=== PATIENT | female | born 1965 | race Two or more races ===

== ENCOUNTER 2017-08-14 18:49 | Emergency (ER) | payer OTHER ==
--- NOTE | 2017-08-14 18:54 | PDOC ---
Rapid Medical Evaluation Time Seen by Provider: 08/14/17 18:53 Medical Evaluation: Allergies Allergy/AdvReac Type Severity Reaction Status Date / Time No Known Drug Allergies Allergy Verified 10/31/12 20:43 DUST Allergy Mild Uncoded 10/31/12 20:43 08/14/17 18:53 The patient presents with a chief complaint of: abd pain I have performed a brief in-person evaluation of this patient. Pertinent physical exam findings: vss I have ordered the following: labs The patient will proceed to the ED for further evaluation.
[2017-08-14 18:55] VITALS: BP 123/54; PULSE 73; TEMP 98; BMI 26.5
[2017-08-14 19:29] LABS: BASO % 0.3 % (0-2.0); EOS % 1.7 % (0-4.5); HEMOGLOBIN 14.1 GM/dL (10.7-15.3); LYMPH % 25.7 % (8-40); MCH 30.4 pg (25.7-33.7); MCHC 34.5 g/dl (32.0-36.0); MEAN CELL VOLUME 88.2 fl (80-96); MEAN PLT VOLUME 8.1 fl (7.5-11.1); MONO % 7.1 % (3.8-10.2); NEUT % 65.2 % (42.8-82.8); PLATELET COUNT 279 K/MM3 (134-434); RBC 4.64 M/mm3 (3.60-5.2); RDW 13.1 % (11.6-15.6); WHITE BLOOD COUNT 7.9 K/mm3 (4.0-10.0)
[2017-08-14 19:31] LABS: URINE APPEARANCE CLEAR; URINE BILIRUBIN NEGATIVE (<2.0 mg/dL); URINE BLOOD NEGATIVE (NEGATIVE); URINE COLOR YELLOW; URINE GLUCOSE (UA) NEGATIVE (NEGATIVE); URINE KETONE NEGATIVE (NEGATIVE); URINE LEUK ESTERASE TRACE (NEGATIVE); URINE NITRITE NEGATIVE (NEGATIVE); URINE UROBILINOGEN NEGATIVE mg/dL (0.2-1.0)
[2017-08-14 19:34] LABS: URINE PROTEIN 1+ (NEGATIVE)
[2017-08-14 19:47] LABS: EPI CELLS RARE /HPF (FEW); URINE BACTERIA RARE /hpf (NONE SEEN); URINE HYALINE CAST 1 /lpf; URINE MUCUS FEW
[2017-08-14 20:01] LABS: ALBUMIN 3.9 g/dl (3.4-5.0); ANION GAP 5 (8-16); BLOOD UREA NITROGEN 12 mg/dL (7-18); CALCIUM 9.4 mg/dL (8.5-10.1); CHLORIDE 105 mmol/L (98-107); CO2 29 mmol/L (21-32); CREATININE 0.5 mg/dL (0.55-1.02); GLUCOSE,RANDOM 107 mg/dL (74-106); LIPASE 96 U/L (73-393); SGOT/AST 12 U/L (15-37); SGPT/ALT 17 U/L (12-78); SODIUM 139 mmol/L (136-145)
[2017-08-14 20:03] LABS: ALK PHOS 116 U/L (45-117); BILIRUBIN,TOTAL 0.4 mg/dL (0.2-1.0); TOT PROT 7.8 g/dl (6.4-8.2)
--- NOTE | 2017-08-14 22:07 | PDOC ---
History of Present Illness - General History Source: Patient Exam Limitations: No Limitations - History of Present Illness Initial Comments: 08/14/17 22:20 The patient is a 51 year old female with who is s/p appendectomy, SBO, who presents to the ED complaining of 1 day of diffuse mid abdominal pain. She states she woke her pain this morning. She states she has experienced similar pain in the past. She also reports nausea, no vomiting or diarrhea. No fever or chills. No chest pain or shortness of breath. Last BM twelve hours ago. <Berta Ambrose - Last Filed: 08/14/17 22:20> <Bekah Montemayor - Last Filed: 08/15/17 17:26> - General Chief Complaint: Pain, Acute Stated Complaint: ABDOMINAL PAIN Time Seen by Provider: 08/14/17 18:53 Past History <Berta Ambrose - Last Filed: 08/14/17 22:20> - Past Medical History Anemia: Yes Asthma: No Cancer: No Cardiac Disorders: No CVA: No COPD: No CHF: No Dementia: No Diabetes: No GI Disorders: Yes (ABD PAIN S/P COLONOSCOPY, REFLUX) Disorders: No HTN: No Hypercholesterolemia: No Liver Disease: No Seizures: No Thyroid Disease: No - Surgical History Abdominal Surgery: No Appendectomy: Yes Cardiac Surgery: No Cholecystectomy: No Lung Surgery: No Neurologic Surgery: No Orthopedic Surgery: No - Suicide/Smoking/Psychosocial Hx Smoking Status: No Smoking History: Never smoked Have you smoked in the past 12 months: No Number of Cigarettes Smoked Daily: 0 Hx Alcohol Use: No Drug/Substance Use Hx: No Substance Use Type: None Hx Substance Use Treatment: No <Bekah Montemayor - Last Filed: 08/15/17 17:26> - Past Medical History Allergies/Adverse Reactions: Allergies Allergy/AdvReac Type Severity Reaction Status Date / Time No Known Drug Allergies Allergy Verified 08/14/17 18:53 DUST Allergy Mild Uncoded 08/14/17 18:53 Home Medications: Ambulatory Orders Multivitamin [Multivitamins] 1 each PO DAILY #0 capsule 11/05/12 Review of Systems - Review of Systems Able to Perform ROS?: Yes Comments:: 08/14/17 22:27 GENERAL/CONSTITUTIONAL: No fever or chills. No weakness. HEAD, EYES, EARS, NOSE AND THROAT: No change in vision. No ear pain or discharge. No sore throat. CARDIOVASCULAR: No chest pain or shortness of breath. RESPIRATORY: No cough, wheezing, or hemoptysis. GASTROINTESTINAL: +Abdominal pain, nausea. No vomiting, diarrhea or constipation. GENITOURINARY: No dysuria, frequency, or change in urination. MUSCULOSKELETAL: No joint or muscle swelling or pain. No neck or back pain. SKIN: No rash NEUROLOGIC: No headache, vertigo, loss of consciousness, or change in strength/ sensation. ENDOCRINE: No increased thirst. No abnormal weight change. HEMATOLOGIC/LYMPHATIC: No anemia, easy bleeding, or history of blood clots. ALLERGIC/IMMUNOLOGIC: No hives or skin allergy. <Berta Ambrose - Last Filed: 08/14/17 22:20> *Physical Exam - Vital Signs Last Vital Signs Temp Pulse Resp BP Pulse Ox 98.0 F 73 18 123/54 100 08/14/17 18:53 08/14/17 18:53 08/14/17 18:53 08/14/17 18:53 08/14/17 18:53 - Physical Exam Comments: 08/14/17 22:28 GENERAL: Awake, alert, and fully oriented, in no acute distress HEAD: No signs of trauma EYES: PERRLA, EOMI, sclera anicteric, conjunctiva clear ENT: Auricles normal inspection, hearing grossly normal, nares patent, oropharynx clear without exudates. Moist mucosa NECK: Normal ROM, supple, no lymphadenopathy, JVD, or masses LUNGS: Breath sounds equal, clear to auscultation bilaterally. No wheezes, and no crackles HEART: Regular rate and rhythm, normal S1 and S2, no murmurs, rubs or gallops ABDOMEN: +Mild midabdominal tenderness. +Hyperactive bowel sounds. Soft, normoactive bowel sounds. No guarding, no rebound. No masses EXTREMITIES: Normal range of motion, no edema. No clubbing or cyanosis. No cords, erythema, or tenderness NEUROLOGICAL: Cranial nerves II through XII grossly intact. Normal speech, normal gait SKIN: Warm, Dry, normal turgor, no rashes or lesions noted. <Berta Ambrose - Last Filed: 08/14/17 22:20> - Vital Signs Last Vital Signs Temp Pulse Resp BP Pulse Ox 98.0 F 73 18 123/54 100 08/14/17 18:53 08/14/17 18:53 08/14/17 18:53 08/14/17 18:53 08/14/17 18:53 <Bekah Montemayor - Last Filed: 08/15/17 17:26> ED Treatment Course - LABORATORY CBC & Chemistry Diagram: 08/14/17 19:14 08/14/17 19:15 - ADDITIONAL ORDERS Additional order review: Laboratory Results 08/14/17 08/14/17 19:15 19:15 Sodium 139 Potassium 4.0 Chloride 105 Carbon Dioxide 29 Anion Gap 5 L BUN 12 Creatinine 0.5 L Creat Clearance w eGFR > 60 Random Glucose 107 H Calcium 9.4 Total Bilirubin 0.4 AST 12 L ALT 17 Alkaline Phosphatase 116 Total Protein 7.8 Albumin 3.9 Lipase 96 Urine Color Yellow Urine Appearance Clear Urine pH 9.0 H D Ur Specific [place] 1.020 Urine Protein 1+ H Urine Glucose (UA) Negative Urine Ketones Negative Urine Blood Negative Urine Nitrite Negative Urine Bilirubin Negative Urine Urobilinogen Negative Ur Leukocyte Esterase Trace Urine WBC (Auto) 3 Urine RBC (Auto) 3 Ur Epithelial Cells Rare Urine Bacteria Rare Hyaline Casts 1 Urine Mucus Few 08/14/17 19:14 RBC 4.64 MCV 88.2 MCHC 34.5 RDW 13.1 MPV 8.1 Neutrophils % 65.2 Lymphocytes % 25.7 D Monocytes % 7.1 Eosinophils % 1.7 Basophils % 0.3 <Berta Ambrose - Last Filed: 08/14/17 22:20> - LABORATORY CBC & Chemistry Diagram: 08/14/17 19:14 08/14/17 19:15 - ADDITIONAL ORDERS Additional order review: Laboratory Results 08/14/17 08/14/17 19:15 19:15 Sodium 139 Potassium 4.0 Chloride 105 Carbon Dioxide 29 Anion Gap 5 L BUN 12 Creatinine 0.5 L Creat Clearance w eGFR > 60 Random Glucose 107 H Calcium 9.4 Total Bilirubin 0.4 AST 12 L ALT 17 Alkaline Phosphatase 116 Total Protein 7.8 Albumin 3.9 Lipase 96 Urine Color Yellow Urine Appearance Clear Urine pH 9.0 H D Ur Specific [place] 1.020 Urine Protein 1+ H Urine Glucose (UA) Negative Urine Ketones Negative Urine Blood Negative Urine Nitrite Negative Urine Bilirubin Negative Urine Urobilinogen Negative Ur Leukocyte Esterase Trace Urine WBC (Auto) 3 Urine RBC (Auto) 3 Ur Epithelial Cells Rare Urine Bacteria Rare Hyaline Casts 1 Urine Mucus Few 08/14/17 19:14 RBC 4.64 MCV 88.2 MCHC 34.5 RDW 13.1 MPV 8.1 Neutrophils % 65.2 Lymphocytes % 25.7 D Monocytes % 7.1 Eosinophils % 1.7 Basophils % 0.3 <Bekah Montemayor - Last Filed: 08/15/17 17:26> *DC/Admit/Observation/Transfer - Attestations Scribe Attestion: 08/14/17 22:29 Documentation prepared by Berta Ambrose, acting as medical physics teacher for Bekah Montemayor MD. <Berta Ambrose - Last Filed: 08/14/17 22:20> <Bekah Montemayor - Last Filed: 08/15/17 17:26> Diagnosis at time of Disposition: Enteritis - Discharge Dispostion Disposition: HOME Condition at time of disposition: Improved - Referrals Referrals: Shemar Chester MD [Staff Physician] - - Patient Instructions Printed Discharge Instructions: DI for Abdominal Pain-Adult Additional Instructions: Please take 650 mg of Tylenol every 4 hours as needed for pain. He may take 600 mg ibuprofen every 6 hours as needed. You have a copy of the CAT scan results. 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 Call to schedule appointment. It is very important that you call. Print Language: INDONESIAN - Post Discharge Activity Forms/Work/School Notes: Back to Work
[2017-08-14] MEDS ORDERED: SODIUM CHLORIDE 1,000 ML IV STA (22:12)
[2017-08-14] MEDS ORDERED: ONDANSETRON 4 MG/2 ML VIAL IVPUSH ONE (22:13)
[2017-08-14] MEDS ORDERED: ONDANSETRON 4 MG/2 ML VIAL ONE (22:32)
--- NOTE | 2017-08-15 03:08 | PDOC ---
*Physical Exam - Vital Signs Last Vital Signs Temp Pulse Resp BP Pulse Ox 98.0 F 73 18 123/54 100 08/14/17 18:53 08/14/17 18:53 08/14/17 18:53 08/14/17 18:53 08/14/17 18:53 ED Treatment Course - LABORATORY CBC & Chemistry Diagram: 08/14/17 19:14 08/14/17 19:15 - ADDITIONAL ORDERS Additional order review: Laboratory Results 08/14/17 08/14/17 19:15 19:15 Sodium 139 Potassium 4.0 Chloride 105 Carbon Dioxide 29 Anion Gap 5 L BUN 12 Creatinine 0.5 L Creat Clearance w eGFR > 60 Random Glucose 107 H Calcium 9.4 Total Bilirubin 0.4 AST 12 L ALT 17 Alkaline Phosphatase 116 Total Protein 7.8 Albumin 3.9 Lipase 96 Urine Color Yellow Urine Appearance Clear Urine pH 9.0 H D Ur Specific [place] 1.020 Urine Protein 1+ H Urine Glucose (UA) Negative Urine Ketones Negative Urine Blood Negative Urine Nitrite Negative Urine Bilirubin Negative Urine Urobilinogen Negative Ur Leukocyte Esterase Trace Urine WBC (Auto) 3 Urine RBC (Auto) 3 Ur Epithelial Cells Rare Urine Bacteria Rare Hyaline Casts 1 Urine Mucus Few 08/14/17 19:14 RBC 4.64 MCV 88.2 MCHC 34.5 RDW 13.1 MPV 8.1 Neutrophils % 65.2 Lymphocytes % 25.7 D Monocytes % 7.1 Eosinophils % 1.7 Basophils % 0.3 - Medications Given in the ED: ED Medications Discontinued Medications Generic Name Dose Route Start Last Admin Trade Name Freq PRN Reason Stop Dose Admin Sodium Chloride 1,000 mls @ 1,000 mls/hr 08/14/17 22:12 08/14/17 22:31 Normal Saline - IV 08/14/17 23:11 1,000 mls/hr ASDIR STA Administration Ondansetron HCl 4 mg 08/14/17 22:13 08/14/17 22:31 Zofran Injection IVPUSH 08/14/17 22:14 4 mg ONCE ONE Administration Medical Decision Making - Medical Decision Making 08/15/17 03:07 Sign-out received from outgoing Emergency Physician Dr. Montemayor Pt interviewed and examined Ancillary studies reviewed Case discussed in detail with oncoming Emergency Physician including history, physical exam and ancillary studies. CBC, BMP 08/14/17 19:14 08/14/17 19:15 CMP Sodium 139 mmol/L (136-145) 08/14/17 19:15 Potassium 4.0 mmol/L (3.5-5.1) 08/14/17 19:15 Chloride 105 mmol/L (98-107) 08/14/17 19:15 Carbon Dioxide 29 mmol/L (21-32) 08/14/17 19:15 Anion Gap 5 (8-16) L 08/14/17 19:15 BUN 12 mg/dL (7-18) 08/14/17 19:15 Creatinine 0.5 mg/dL (0.55-1.02) L 08/14/17 19:15 Creat Clearance w eGFR > 60 (>60) 08/14/17 19:15 Random Glucose 107 mg/dL (74-106) H 08/14/17 19:15 Calcium 9.4 mg/dL (8.5-10.1) 08/14/17 19:15 Total Bilirubin 0.4 mg/dL (0.2-1.0) 08/14/17 19:15 AST 12 U/L (15-37) L 08/14/17 19:15 ALT 17 U/L (12-78) 08/14/17 19:15 Alkaline Phosphatase 116 U/L (45-117) 08/14/17 19:15 Total Protein 7.8 g/dl (6.4-8.2) 08/14/17 19:15 Albumin 3.9 g/dl (3.4-5.0) 08/14/17 19:15 Lipase 96 U/L (73-393) 08/14/17 19:15 Urine Test Results Urine Color Yellow 08/14/17 19:15 Urine Appearance Clear 08/14/17 19:15 Urine pH 9.0 (5.0-8.0) H D 08/14/17 19:15 Ur Specific [place] 1.020 (1.001-1.035) 08/14/17 19:15 Urine Protein 1+ (NEGATIVE) H 08/14/17 19:15 Urine Glucose (UA) Negative (NEGATIVE) 08/14/17 19:15 Urine Ketones Negative (NEGATIVE) 08/14/17 19:15 Urine Blood Negative (NEGATIVE) 08/14/17 19:15 Urine Nitrite Negative (NEGATIVE) 08/14/17 19:15 Urine Bilirubin Negative (<2.0 mg/dL) 08/14/17 19:15 Ur Leukocyte Esterase Trace (NEGATIVE) 08/14/17 19:15 Ur Epithelial Cells Rare /HPF (FEW) 08/14/17 19:15 Urine Bacteria Rare /hpf (NONE SEEN) 08/14/17 19:15 Urine Mucus Few 08/14/17 19:15 CAT scan demonstrates mild nonspecific wall thickening of the proximal jejunum which may be due to mild infectious or inflammatory enteritis or celiac sprue gluten enteropathy. 08/15/17 03:18 I had given the results to the patient. The patient states to me that she has had multiple attacks of these pains over the last few months. The patient was seeing Dr. Powell prior, but now that he left [facility], she needs another GI doctor. The patient has a history of an appendectomy. I instructed the patient that she may need an evaluation of celiac disease or other inflammatory enteritis. Will treat as viral enteritis and have patient follow up with GI this week. The patient agrees with the plan. I discussed the physical exam findings, ancillary test results and final diagnoses with the patient. I answered all of the patient's questions. The patient was satisfied with the care received and felt comfortable with the discharge plan and treatment plan. The patient will call their primary care physician within 24 hours to arrange follow-up and will return to the Emergency Department with any new, persistant or worsening symptoms. *DC/Admit/Observation/Transfer Diagnosis at time of Disposition: Enteritis - Discharge Dispostion Disposition: HOME Condition at time of disposition: Improved Admit: No - Referrals Referrals: Shemar Chester MD [Staff Physician] - - Patient Instructions Printed Discharge Instructions: DI for Abdominal Pain-Adult Additional Instructions: Please take 650 mg of Tylenol every 4 hours as needed for pain. He may take 600 mg ibuprofen every 6 hours as needed. You have a copy of the CAT scan results. Please bring this copy to the [facility] worker. Call to schedule appointment. It is very important that you call. Print Language: TOGOLESE - Post Discharge Activity Forms/Work/School Notes: Back to Work
== END 2017-08-15 03:44 | disposition home or self-care (01) ==
LOC: JER 18:49
PROC: 3E033GC Introduction of Other Therapeutic Substance into Peripheral Vein, Percutaneous Approach (ICD-10-PCS; principal; 2017-08-14)
DX: K52.9 Noninfective gastroenteritis and colitis, unspecified (principal); D64.9 Anemia, unspecified
CPT/HCPCS: 36415; 74177-TC; 80053; 81003; 81015; 83690; 85025; 96374; 99281-25; J7030

== ENCOUNTER 2019-02-19 20:36 | Emergency (ER) | payer OTHER ==
[2019-02-19 20:59] VITALS: BP 129/79; PULSE 74; TEMP 98.2; BMI 25.0
--- NOTE | 2019-02-19 22:53 | PDOC ---
History of Present Illness - General Chief Complaint: Hematuria Stated Complaint: HEMATURIA Time Seen by Provider: 02/19/19 22:48 Past History - Past Medical History Allergies/Adverse Reactions: Allergies Allergy/AdvReac Type Severity Reaction Status Date / Time No Known Drug Allergies Allergy Verified 02/19/19 20:52 DUST Allergy Mild Uncoded 02/19/19 20:52 Home Medications: Ambulatory Orders Multivitamin [Multivitamins] 1 each PO DAILY #0 capsule 11/05/12 Anemia: Yes Asthma: No Cancer: No Cardiac Disorders: No CVA: No COPD: No CHF: No Dementia: No Diabetes: No GI Disorders: Yes (ABD PAIN S/P COLONOSCOPY, REFLUX) Disorders: No HTN: No Hypercholesterolemia: No Liver Disease: No Seizures: No Thyroid Disease: No - Surgical History Abdominal Surgery: No Appendectomy: Yes Cardiac Surgery: No Cholecystectomy: No Lung Surgery: No Neurologic Surgery: No Orthopedic Surgery: No - Psycho Social/Smoking Cessation Hx Smoking Status: No Smoking History: Never smoked Have you smoked in the past 12 months: No Number of Cigarettes Smoked Daily: 0 Information on smoking cessation initiated: No Hx Alcohol Use: No Drug/Substance Use Hx: No Substance Use Type: None Hx Substance Use Treatment: No *Physical Exam - Vital Signs Last Vital Signs Temp Pulse Resp BP Pulse Ox 98.2 F 74 18 129/79 100 02/19/19 20:50 02/19/19 20:50 02/19/19 20:50 02/19/19 20:50 02/19/19 20:50 Discharge - Follow up/Referral Referrals: Tiny Hensley MD [Primary Care Provider] - - Patient Discharge Instructions - Post Discharge Activity
[2019-02-20 00:43] LABS: URINE RBC 4587.1 /hpf (0-4)
[2019-02-20 00:44] LABS: EPI CELLS 0.1 /HPF (0-5/HPF); URINE BACTERIA 14.6 /hpf (NEGATIVE)
[2019-02-20 00:49] LABS: HYALINE CASTS NONE SEEN /lpf (0-8)
[2019-02-20] MEDS ORDERED: PHENAZOPYRIDINE HCL 100 MG TABLET (FP) PO ONE (01:14)
[2019-02-20] MEDS ORDERED: SULFAMETHOXAZOLE/TRIMETHOPRIM 800MG/160MG D.S. TABLET PO ONE (01:14)
--- NOTE | 2019-02-20 01:16 | PDOC ---
Documentation entered by Oksana Patel SCRIBE, acting as scribe for Bekah Montemayor MD. Bekah Montemayor MD: This documentation has been prepared by the Jorge garcía Adrianna, SCRIBE, under my direction and personally reviewed by me in its entirety. I confirm that the documentation accurately reflects all work, treatment, procedures, and medical decision making performed by me. History of Present Illness - General Chief Complaint: Hematuria Stated Complaint: HEMATURIA Time Seen by Provider: 02/19/19 22:48 - History of Present Illness Initial Comments: The patient is a 53 year old female, with a significant PMH of anemia, GERD, endometriosis, partial colectomy, ovarian cysts, and reflux, who presents to the ED for evaluation of hematuria for 6 hours. Patient notes she developed hematuria earlier tonight. She endorses some associated increased urinary frequency and dysuria. She denies any other acute complaints at this time. Allergies: Dust Surgical History: Partial colectomy, appendectomy Social History: Denies EtOH, tobacco, or illicit drug use PCP: Dr. Hensley Past History - Past Medical History Allergies/Adverse Reactions: Allergies Allergy/AdvReac Type Severity Reaction Status Date / Time No Known Drug Allergies Allergy Verified 02/19/19 20:52 DUST Allergy Mild Uncoded 02/19/19 20:52 Home Medications: Ambulatory Orders Multivitamin [Multivitamins] 1 each PO DAILY #0 capsule 11/05/12 Sulfamethoxazole/Trimethoprim [Bactrim Ds -] 1 tab PO BID #10 tablet 02/20/19 Anemia: Yes Asthma: No Cancer: No Cardiac Disorders: No CVA: No COPD: No CHF: No Dementia: No Diabetes: No GI Disorders: Yes (ABD PAIN S/P COLONOSCOPY, REFLUX) Disorders: No HTN: No Hypercholesterolemia: No Liver Disease: No Seizures: No Thyroid Disease: No - Surgical History Abdominal Surgery: No Appendectomy: Yes Cardiac Surgery: No Cholecystectomy: No Lung Surgery: No Neurologic Surgery: No Orthopedic Surgery: No - Psycho Social/Smoking Cessation Hx Smoking Status: No Smoking History: Never smoked Have you smoked in the past 12 months: No Number of Cigarettes Smoked Daily: 0 Information on smoking cessation initiated: No Hx Alcohol Use: No Drug/Substance Use Hx: No Substance Use Type: None Hx Substance Use Treatment: No Review of Systems - Review of Systems Comments:: GENERAL/CONSTITUTIONAL: No fever or chills. No weakness. HEAD, EYES, EARS, NOSE AND THROAT: No change in vision. No ear pain or discharge. No sore throat. CARDIOVASCULAR: No chest pain or shortness of breath. RESPIRATORY: No cough, wheezing, or hemoptysis. GASTROINTESTINAL: No nausea, vomiting, diarrhea or constipation. GENITOURINARY: +Hematuria. +Increased urinary frequency. +Dysuria. MUSCULOSKELETAL: No joint or muscle swelling or pain. No neck or back pain. SKIN: No rash NEUROLOGIC: No headache, vertigo, loss of consciousness, or change in strength/ sensation. ENDOCRINE: No increased thirst. No abnormal weight change. HEMATOLOGIC/LYMPHATIC: No anemia, easy bleeding, or history of blood clots. ALLERGIC/IMMUNOLOGIC: No hives or skin allergy. *Physical Exam - Vital Signs Last Vital Signs Temp Pulse Resp BP Pulse Ox 98.2 F 74 18 129/79 100 02/19/19 20:50 02/19/19 20:50 02/19/19 20:50 02/19/19 20:50 02/19/19 20:50 - Physical Exam Comments: GENERAL: Awake, alert, and fully oriented, in no acute distress HEAD: No signs of trauma EYES: PERRLA, EOMI, sclera anicteric, conjunctiva clear ENT: Auricles normal inspection, hearing grossly normal, nares patent, oropharynx clear without exudates. Moist mucosa NECK: Normal ROM, supple, no lymphadenopathy, JVD, or masses LUNGS: Breath sounds equal, clear to auscultation bilaterally. No wheezes, and no crackles HEART: Regular rate and rhythm, normal S1 and S2, no murmurs, rubs or gallops ABDOMEN: Soft, nontender, normoactive bowel sounds. No guarding, no rebound. No masses BACK: No C/T/L tenderness. No flank pain. No CVA tenderness. EXTREMITIES: Normal range of motion, no edema. No clubbing or cyanosis. No cords, erythema, or tenderness NEUROLOGICAL: Cranial nerves II through XII grossly intact. Normal speech, normal gait SKIN: Warm, Dry, normal turgor, no rashes or lesions noted. ED Treatment Course - ADDITIONAL ORDERS Additional order review: Laboratory Results 02/19/19 23:15 Urine Color Red Urine Appearance Turbid Urine pH > 9.0 H Ur Specific [place] 1.016 Urine Protein 3+ H Urine Glucose (UA) Negative Urine Blood 2+ H Urine Nitrite Positive H Urine Bilirubin Moderate Urine Urobilinogen 0.2 Ur Leukocyte Esterase 3+ H Urine WBC (Auto) 160.0 Urine RBC (Auto) 4587.1 Urine Casts (Auto) None seen U Epithel Cells (Auto) 0.1 Urine Bacteria (Auto) 14.6 Medical Decision Making - Medical Decision Making 02/20/19 01:15 53-year-old female who presents with dysuria, hematuria and increased frequency has a urinalysis that is positive for nitrates and bacteria Impression patient has urinary tract infection will be started on antibiotics and discharged home Discharge - Discharge Information Problems reviewed: Yes Clinical Impression/Diagnosis: Hemorrhagic cystitis UTI (urinary tract infection) Qualifiers: Urinary tract infection type: acute cystitis Hematuria presence: with hematuria Qualified Code(s): N30.01 - Acute cystitis with hematuria Condition: Stable Disposition: HOME - Additional Discharge Information Prescriptions: Sulfamethoxazole/Trimethoprim [Bactrim Ds -] 1 tab PO BID #10 tablet - Follow up/Referral Referrals: Tiny Hensley MD [Primary Care Provider] - - Patient Discharge Instructions Patient Printed Discharge Instructions: DI for Urinary Tract Infection (UTI), DI for Hemorrhagic Cystitis Additional Instructions: Please hot die picker your medications at your pharmacy Follow up with your primary medical doctor Print Language: YEMENI - Post Discharge Activity
[2019-02-20] MEDS ORDERED: PHENAZOPYRIDINE HCL 100 MG TABLET (FP) ONE (01:32)
[2019-02-20] MEDS ORDERED: SULFAMETHOXAZOLE/TRIMETHOPRIM 800MG/160MG D.S. TABLET ONE (01:32)
[2019-02-20 05:08] LABS: PH,URINE 8.5 (5.0-8.0); URINE APPEARANCE Clear; URINE BILIRUBIN Negative (NEGATIVE); URINE COLOR Yellow; URINE GLUCOSE (UA) Negative (NEGATIVE); URINE KETONE Negative (NEGATIVE); URINE LEUK ESTERASE Trace (NEGATIVE); URINE NITRITE Negative (NEGATIVE); URINE PROTEIN 3+ (NEGATIVE)
== END 2019-02-20 01:57 | disposition home or self-care (01) ==
LOC: JER 20:36
DX: N30.01 Acute cystitis with hematuria (principal); Z86.2 Personal history of diseases of the blood and blood-forming organs and certain disorders involving the immune mechanism; Z87.19 Personal history of other diseases of the digestive system; Z87.42 Personal history of other diseases of the female genital tract; Z91.048 Other nonmedicinal substance allergy status
CPT/HCPCS: 81003; 87086; 87186; 99282-25

== ENCOUNTER 2022-01-25 09:38 | Day surgery (SDC) | payer OTHER ==
[2022-01-24 15:47] VITALS: BMI 24.5
[2022-01-25] MEDS ORDERED: PROPOFOL 60 ML ONE (11:56)
[2022-01-25 13:28] VITALS: PULSE 54; RESP 16
[2022-01-25 13:43] VITALS: BP 128/70; TEMP 98
== END 2022-01-25 13:35 | disposition home or self-care (01) ==
LOC: FASU-ENDO 09:38
PROVIDERS: ATTEND Internal Medicine Gastroenterology
PROC: 0DBL8ZX Excision of Transverse Colon, Via Natural or Artificial Opening Endoscopic, Diagnostic (ICD-10-PCS; 2022-01-25)
PROC: 0DBM8ZX Excision of Descending Colon, Via Natural or Artificial Opening Endoscopic, Diagnostic (ICD-10-PCS; 2022-01-25)
PROC: 0DBK8ZX Excision of Ascending Colon, Via Natural or Artificial Opening Endoscopic, Diagnostic (ICD-10-PCS; principal; 2022-01-25 12:22)
DX: R19.7 Diarrhea, unspecified (principal); K63.89 Other specified diseases of intestine; K64.1 Second degree hemorrhoids
CPT/HCPCS: 88305-TC

== ENCOUNTER 2024-10-29 11:45 | Emergency (ER) | payer OTHER ==
[2024-10-29 12:08] VITALS: BP 110/67; PULSE 74; RESP 18; TEMP 98.8; BMI 26.7
[2024-10-29] MEDS ORDERED: ONDANSETRON 4 MG/2 ML VIAL ONE (13:25)
[2024-10-29] MEDS: SODIUM CHLORIDE 1,000 ML IV STA (13:40)
[2024-10-29] MEDS: ONDANSETRON 4 MG/2 ML VIAL IVPUSH ONE (13:41)
[2024-10-29 13:49] LABS: ABSOLUTE IMMATURE GRANULOCYTES 0.02 x10^3/uL (0.0-0.031); BASOPHILS # 0.02 x10^3/uL (0.01-0.08); EOSINOPHIL % 2.1 % (0.7-5.8); EOSINOPHILS # 0.13 x10^3/uL (0.04-0.36); HEMATOCRIT 43.5 % (34.1-44.9); MCHC 32.2 g/dl (32.2-35.5); MEAN CELL VOLUME 88.8 fl (79.4-94.8); MEAN PLT VOLUME 9.8 fl (9.4-12.3); MONOCYTE # 0.84 x10^3/uL (0.24-0.86); MONOCYTE % 13.8 % (4.7-12.5); PLATELET COUNT 239 x10^3/uL (182-369); RDW 12.6 % (12.3-16.6)
[2024-10-29 13:53] LABS: EPI CELLS 4 /uL (0-25.1); HYALINE CASTS 1 /uL (0-3.1); PH,URINE 6.5 (5.0-8.0); URINE APPEARANCE CLEAR; URINE BACTERIA 6 /uL (0-1359); URINE BILIRUBIN NEGATIVE (NEGATIVE); URINE COLOR YELLOW; URINE GLUCOSE (UA) NEGATIVE (NEGATIVE); URINE KETONE NEGATIVE (NEGATIVE); URINE LEUK ESTERASE NEGATIVE (NEGATIVE); URINE NITRITE NEGATIVE (NEGATIVE); URINE PROTEIN TRACE (NEGATIVE); URINE RBC 42 /uL (0-23.9); URINE UROBILINOGEN 0.2 mg/dL (0.2-1.0); URINE WBC 15 /uL (0-25.8)
[2024-10-29 14:12] LABS: ALBUMIN 3.7 g/dl (3.4-5.0); BLOOD UREA NITROGEN 11.4 mg/dL (7-18)
[2024-10-29 14:15] LABS: CREATININE 0.7 mg/dL (0.55-1.3)
[2024-10-29 14:17] LABS: BILIRUBIN,TOTAL 0.3 mg/dL (0.2-1); TOT PROT 7.7 g/dl (6.4-8.2)
[2024-10-29 15:04] LABS: HCV DIAGNOSTIC IN-HOUSE W/RFLX NON-REACTIVE (NONREACTIVE)
[2024-10-29 15:05] LABS: HIV INTERPRETATION NEGATIVE (NEGATIVE)
== END 2024-10-29 14:55 | disposition home or self-care (01) ==
LOC: JER 11:45
PROC: 3E033GC Introduction of Other Therapeutic Substance into Peripheral Vein, Percutaneous Approach (ICD-10-PCS; principal; 2024-10-29)
PROC: 3E0337Z Introduction of Electrolytic and Water Balance Substance into Peripheral Vein, Percutaneous Approach (ICD-10-PCS; 2024-10-29)
DX: R19.7 Diarrhea, unspecified (principal); R10.9 Unspecified abdominal pain; R11.2 Nausea with vomiting, unspecified; T78.1XXA Other adverse food reactions, not elsewhere classified, initial encounter
CPT/HCPCS: 36415; 80053; 81003; 83690; 85025; 86803; 87389; 96361; 96374; 99284-25